=== PATIENT | male | born 1965 | race Caucasian/White ===

== ENCOUNTER 2017-10-23 11:30 | Day surgery (SDC) | payer OTHER, SELFPAY ==
--- NOTE | 2017-10-23 | PATH_ITS ---
[facility] Accession Number: [id number] . 01 Material submitted: . PART A: ASCENDING COLON POLYP PART B: TRANSVERSE COLON POLYP PART C: RECTAL POLYP . 02 Diagnosis: A. Ascending Colon Polyp: Sessile serrated adenoma. . B. Transverse Colon Polyp: Sessile serrated adenoma. . C. Rectal Polyp: Inflammatory polyp. MRV/10/24/2017 . 02 Electronically signed: . José Miguel De Jesus MD, PhD, Pathologist NPI- [id number] . 01 Gross description: . Received are three formalin-filled containers, each labeled with the patient's name: . A. In a container labeled ascending colon polyp, the specimen consists of three 0.2-0.3 cm portions of tissue, entirely submitted in cassette A. B. In a container labeled transverse colon polyp, the specimen consists of a 0.7 cm portion of tissue, entirely submitted in cassette B. C. In a container labeled rectal polyp, the specimen consists of a 0.5 cm portion of tissue, entirely submitted in cassette C. ([id number]) /FRR . 02 Pathologist provided ICD-10: D12.2, D12.3, K51.40 . 02 CPT . 995578, 568143, 685686 Performed at: 01 [facility] [address] [place] [address], [place], [place] [id number] MD Wiliam Alejandra MD Phone: [phone] Performed at: 02 [facility] [address] [place], [place] [id number] MD Jamar Zapata MD Phone: [phone]
[2017-10-23 12:06] VITALS: BP 164/94; PULSE 73; RESP 16; TEMP 36.2; O2SAT 93; BMI 32.5
[2017-10-23] MEDS: SODIUM CHLORIDE 0.9% 1,000 ML 70 ML IV (12:16)
--- NOTE | 2017-10-23 13:16 | PM.HP.1 ---
History of Present Illness Date Patient Seen: 10/23/17 Chief complaint: [id number] COLONOSCOPY WITH BIOPSY Narrative: The patient is a 52-year-old male who was diagnosed with colon cancer in [facility] in 2016. Per his history it appears that a segmental resection was performed and he did not require chemotherapy. It is unclear to me whether he had a rectal cancer or whether this was a mass or polyp. He denies any GI symptoms at present and denies any alarm symptoms such as GI bleeding or unintentional weight loss Patient History Family & Social History Social History: household members none Meds Home Medications Medication Instructions Recorded Confirmed Type levothyroxine 100 mg DAILY 10/23/17 10/23/17 History lisinopril 10 mg DAILY 10/23/17 10/23/17 History multivitamin 10/23/17 History Allergies Allergy/AdvReac Type Severity Reaction Status Date / Time No Known Drug Allergies Allergy Verified 10/23/17 12:02 Review of Systems Review of Systems All systems reviewed & are unremarkable except as noted in HPI and below Exam Vital Signs (past 8 hours): - 10/23/17 12:06 Temperature 97.2 F L Pulse Rate 73 Respiratory Rate 16 Blood Pressure 164/94 H Pulse Oximetry 93 Oxygen Delivery Method Room Air Narrative Exam Narrative: General: Patient is obese, not in apparent distress Cardiovascular: Regular rate and rhythm, no murmurs, rubs, or gallops; no evidence of edema; no palpable abdominal aortic aneurysm Gastrointestinal: Normoactive bowel sounds, soft, nontender, nondistended, no rebound tenderness, no hepatosplenomegaly, no evidence of hernia; positive surgical scar Assessment & Plan Plan: Assessment/Plan Narrative: 52-year-old male diagnosed with colon cancer in 2016 in [place] status post what appears to be a segmental resection here for surveillance colonoscopy. Regarding the procedure(s), the risks and potential complications, benefits, and alternatives (including not doing the procedure) were discussed with the patient. The risks include but are not limited to bleeding, infection, perforation which may require surgical intervention, missed lesions, and adverse reactions to sedative medicines. After a question and answer period, the patient agreed to proceed with the procedure(s).
--- NOTE | 2017-10-23 13:20 | P.HP_ITS ---
History of Present Illness Date Patient Seen: 10/23/17 Chief complaint: [id number] COLONOSCOPY WITH BIOPSY Narrative: The patient is a 52-year-old male who was diagnosed with colon cancer in [facility] in 2016. Per his history it appears that a segmental resection was performed and he did not require chemotherapy. It is unclear to me whether he had a rectal cancer or whether this was a mass or polyp. He denies any GI symptoms at present and denies any alarm symptoms such as GI bleeding or unintentional weight loss Patient History Family & Social History Social History: household members none Meds Home Medications Medication Instructions Recorded Confirmed Type levothyroxine 100 mg DAILY 10/23/17 10/23/17 History lisinopril 10 mg DAILY 10/23/17 10/23/17 History multivitamin 10/23/17 History Allergies Allergy/AdvReac Type Severity Reaction Status Date / Time No Known Drug Allergies Allergy Verified 10/23/17 12:02 Review of Systems Review of Systems All systems reviewed & are unremarkable except as noted in HPI and below Exam Vital Signs (past 8 hours): - 10/23/17 12:06 Temperature 97.2 F L Pulse Rate 73 Respiratory Rate 16 Blood Pressure 164/94 H Pulse Oximetry 93 Oxygen Delivery Method Room Air Narrative Exam Narrative: General: Patient is obese, not in apparent distress Cardiovascular: Regular rate and rhythm, no murmurs, rubs, or gallops; no evidence of edema; no palpable abdominal aortic aneurysm Gastrointestinal: Normoactive bowel sounds, soft, nontender, nondistended, no rebound tenderness, no hepatosplenomegaly, no evidence of hernia; positive surgical scar Assessment & Plan Plan: Assessment/Plan Narrative: 52-year-old male diagnosed with colon cancer in 2016 in [place] status post what appears to be a segmental resection here for surveillance colonoscopy. Regarding the procedure(s), the risks and potential complications, benefits, and alternatives (including not doing the procedure) were discussed with the patient. The risks include but are not limited to bleeding, infection, perforation which may require surgical intervention, missed lesions, and adverse reactions to sedative medicines. After a question and answer period, the patient agreed to proceed with the procedure(s).
--- NOTE | 2017-10-23 13:20 | P.OP.ENDO_ITS ---
Operative Date/Time/Diagnoses Date of procedure: 10/23/17 Procedure Notes Procedure in detail: Surgeon: Kevan Cortes MD Procedure: Colonoscopy with snare polypectomy and Endoclip Preoperative diagnosis: Personal history of colon cancer 2016 Postoperative diagnosis: 4 colon polyps status post polypectomy, healthy- appearing colocolonic anastomosis, grade 2 internal hemorrhoids Medications: Conscious sedation using 6 mg IV of Midazolam and 100 mcg IV of Fentanyl Preanesthesia Assessment An H and P was performed/updated and the Px?s ASA class is 2. The procedure was discussed in detail with the patient. The potential risks and complications including infection, bleeding, missed lesions, perforation, need for surgery in case of perforation, prolonged hospital stay, and were explained. A brief question and answer period was allotted and once all questions were answered, informed consent was obtained. The patient was brought back to the procedure room and placed on standard monitoring. The patient?s vital signs were monitored continuously throughout the entire procedure. Prior to starting, a timeout was performed to confirm the patient?s identity, allergies, medications, and procedure. Procedure in detail The patient was placed in left lateral decubitus position and once adequate sedation was obtained a KRSI was performed. The digital rectal examination revealed no palpable lesions. The tip of the colonoscope was placed in the anal canal and advanced without difficulty all the way to the cecum which was identified by the appendiceal orifice and ileocecal valve. The terminal ileum was intubated to a distance of 5 cm with no evidence of mucosal abnormalities. The colonoscope was brought back to the cecum and careful examination of all beard of the colon was performed with irrigation of any residual stool. In the ascending colon there was note of 2 sessile polyps measuring 4 and 5 mm and these were removed in their entirety by means of cold snare with minimal bleeding. In the transverse colon there was note of a 7 mm sessile polyp and this was removed in its entirety by means of a cold snare with minimal bleeding. The these polyps were successfully retrieved. At 20 cm from the anal verge there was note of a end-to-end colocolonic anastomosis likely representing the area of prior colon cancer. The anastomosis appeared healthy with no evidence of tumor recurrence. In the rectum there was note of a 4 mm sessile polyp which was removed in its entirety by means of a cold snare. There was note of residual post polypectomy bleeding and hence the decision was made to place 1 [employer] clip at the polypectomy site and there was adequate hemostasis. Retroflexion was performed in the colon this revealed grade 2 internal hemorrhoids. The patient tolerated the procedure well and will be brought back to the recovery area to be discharged once criteria are met. The prep was judged to be good/excellent and adequate to identify polyps less than 5 mm. The withdrawal time was 16 min. The total procedure time from initial sedation was 25 min. Complications There were no complications and estimated blood loss was minimal. Recommendations: Resume previous diet Continue outPx medications Follow up pathology results Repeat colonoscopy in 3 years. This may change depending on pathology results An emergency contact number was given to the patient for any complications related to the procedure
--- NOTE | 2017-10-23 13:21 | P.DS_ITS ---
History of Present Illness Chief complaint: [id number] COLONOSCOPY WITH BIOPSY Narrative: The patient is a 52-year-old male who was diagnosed with colon cancer in [facility] in 2016. Per his history it appears that a segmental resection was performed and he did not require chemotherapy. It is unclear to me whether he had a rectal cancer or whether this was a mass or polyp. He denies any GI symptoms at present and denies any alarm symptoms such as GI bleeding or unintentional weight loss Discharge Providers Primary care physician: Alfredo Hines MD Discharge provider: Kevan Cortes MD Exam Vital Signs (past 8 hours): - 10/23/17 12:06 Temperature 97.2 F L Pulse Rate 73 Respiratory Rate 16 Blood Pressure 164/94 H Pulse Oximetry 93 Oxygen Delivery Method Room Air Narrative Exam Narrative: General: Patient is obese, not in apparent distress Cardiovascular: Regular rate and rhythm, no murmurs, rubs, or gallops; no evidence of edema; no palpable abdominal aortic aneurysm Gastrointestinal: Normoactive bowel sounds, soft, nontender, nondistended, no rebound tenderness, no hepatosplenomegaly, no evidence of hernia; positive surgical scar Discharge Plan Discharge Plan Patient Disposition: Home, Self-Care Discharge comment: Remove IV prior to discharge Discharge to home once criteria are met (positive flatus, stable vital signs, no abdominal pain, tolerating p.o.) The Endoclip placed is MRI conditional. Should the patient require an MRI, an abdominal x-ray should be performed to ensure passage of the Endoclip. Discharge Med Rec/Prescriptions Prescriptions: Continue levothyroxine 100 mg 100 mg DAILY RF: 0 lisinopril 10 mg 10 mg DAILY RF: 0 multivitamin RF: 0 Discharge Orders: Discharge (Order); Ordered 10/23/17 Ordered By: Kevan Cortes Provider Discharge Instructions Diet: Diet as Tolerated Visit Report/Discharge Packet Stand Alone Forms: Surgery Discharge Discharge Data Primary Care Provider: Alfredo Hines Attending Provider: Kevan Cortes
[2017-10-23] MEDS: MIDAZOLAM 5 MG/5 ML VIAL IV (13:33)
[2017-10-23] MEDS: fentaNYL 250 MCG/5 ML INJ IV (13:35)
[2017-10-23 13:50] VITALS: BP 139/91; PULSE 70; RESP 16; TEMP 36.2; O2SAT 100
[2017-10-23 14:08] VITALS: BP 126/79; PULSE 62; RESP 16; TEMP 36.2; O2SAT 100
--- NOTE | 2017-10-23 14:46 | SUR.PHASEII ---
Unable to print discharge instructions from 3 different computers, and three RN's. Paper copy to chart.
== END 2017-10-23 14:24 | disposition home or self-care (01) ==
PROVIDERS: PCP Family Medicine Geriatric Medicine; Visit Provider Internal Medicine Gastroenterology
PROC: 0DJD8ZZ Inspection of Lower Intestinal Tract, Via Natural or Artificial Opening Endoscopic (ICD-10-PCS; CPT 45378; principal; 2017-10-23 15:00)
DX: Z85.038 Personal history of other malignant neoplasm of large intestine (principal); K64.1 Second degree hemorrhoids; D12.2 Benign neoplasm of ascending colon; D12.3 Benign neoplasm of transverse colon; K51.40 Inflammatory polyps of colon without complications
CPT/HCPCS: 45385; J2250; J3010